=== PATIENT | male | born 1980 | race African-American/Black ===

== ENCOUNTER 2018-01-13 14:10 | Emergency (ER) | payer OTHER, SELFPAY ==
[2018-01-13] MEDS ORDERED: Ibuprofen 800 MG TAB ONE (14:23)
--- NOTE | 2018-01-13 16:05 | RAD ---
3 VIEWS LEFT FOOT: Date: 01/13/18 COMPARISON: None. HISTORY: Fell down stairs last night, trauma, pain. FINDINGS: There is mild degenerative change at the first metatarsophalangeal joint. There is no displaced fracture or evidence of dislocation seen. IMPRESSION: No acute osseous abnormality. POS: [facility]
== END 2018-01-13 15:10 | disposition home or self-care (01) ==
LOC: SCSER 14:10
DX: S93.602A Unspecified sprain of left foot, initial encounter (principal); I10 Essential (primary) hypertension; F17.210 Nicotine dependence, cigarettes, uncomplicated; W10.9XXA Fall (on) (from) unspecified stairs and steps, initial encounter